=== PATIENT | male | born 1970 | race African-American/Black ===

== ENCOUNTER 2018-10-01 11:33 | Observation (INO) | payer BC ==
[2018-10-01] MEDS ORDERED: MORPHINE SULFATE 10 MG/ML INJ IV ONE (14:12)
--- NOTE | 2018-10-01 14:12 | ER Document Report ---
ED Skin Rash/Insect Bite/Abscs - General Chief Complaint: Cyst Stated Complaint: POSSIBLE ABSCESS Time Seen by Provider: 10/01/18 13:52 Mode of Arrival: Ambulatory Information source: Patient Notes: 48-year-old male presents to ED for complaint of large abscess to the left buttocks. He states he has had these multiple times in the past and the last several times he has had to go to surgery when he gets one. He states this 1 is been there for several days but is getting extremely painful now. He states he went to his primary care doctor and they gave him some antibiotics and he took 1 of those and a Motrin this morning and he has not had any solid food since yesterday and only enough fluids to take that pill this morning. He denies any fevers chills or any other symptoms except for the pain in the buttocks from this large abscess. He denies any past medical history except for the cellulitis abscesses. He states he does smoke 3/4 pack a day and drinks on the weekends. 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 Patient is alert and oriented respirations regular and unlabored speaking in full sentences. TRAVEL OUTSIDE OF THE [place] IN LAST 30 DAYS: No - HPI Patient complains to provider of: Tender/swollen area Onset: Last week Onset/Duration: Gradual, Worse Quality of pain: Pressure, Sharp, Throbbing Severity: Severe Pain Level: 5 Skin Character: Abscess Quality of rash: Painful Exacerbated by: Supine, Movement, Walking Relieved by: Denies Similar symptoms previously: Yes Recently seen / treated by doctor: Yes - Related Data Allergies/Adverse Reactions: oxycodone [Oxycodone] Allergy (Mild, Verified 10/01/18 11:45) Past Medical History - Social History Smoking Status: Current Every Day Smoker Chew tobacco use (# tins/day): No Frequency of alcohol use: Occasional Drug Abuse: None Family History: Reviewed & Not Pertinent Patient has suicidal ideation: No Patient has homicidal ideation: No Pulmonary Medical History: Denies: Hx Tuberculosis Renal/ Medical History: Denies: Hx Peritoneal Dialysis Past Surgical History: Denies: Hx Pacemaker - Immunizations Hx Diphtheria, Pertussis, Tetanus Vaccination: No Review of Systems - Review of Systems Notes: REVIEW OF SYSTEMS: CONSTITUTIONAL : Denies fever, chills, or sweats. Denies recent illness. EENT: Denies eye, ear, throat, or mouth pain or symptoms. Denies nasal or sinus congestion or discharge. Denies throat, tongue, or mouth swelling or difficulty swallowing. CARDIOVASCULAR: Denies chest pain. Denies palpitations or racing or irregular heart beat. Denies ankle edema. RESPIRATORY: Denies cough, cold, or chest congestion. Denies shortness of breath, difficulty breathing, or wheezing. GASTROINTESTINAL: Denies abdominal pain or distention. Denies nausea, vomiting , or diarrhea. Denies blood in vomitus, stools, or per rectum. Denies black, tarry stools. Denies constipation. GENITOURINARY: Denies difficulty urinating, painful urination, burning, frequency, blood in urine, or discharge. MUSCULOSKELETAL: Denies back or neck pain or stiffness. Denies joint pain or swelling. SKIN: Large abscess covering the majority of the inner left buttocks into the rectum. Patient states he has had these in the past and this needed surgical I& D's. He states he went to his primary care doctor and they started him on antibiotics and ibuprofen with no relief and no decrease in site in fact it is gotten larger. Patient will go to surgery. Dr. Rodrigez has been contacted and examined the patient. HEMATOLOGIC : Denies easy bruising or bleeding. LYMPHATIC: Denies swollen, enlarged glands. NEUROLOGICAL: Denies confusion or altered mental status. Denies passing out or loss of consciousness. Denies dizziness or lightheadedness. Denies headache. Denies weakness or paralysis or loss of use of either side. Denies problems with gait or speech. Denies sensory loss, numbness, or tingling. Denies seizures. PSYCHIATRIC: Denies anxiety or stress. Denies depression, suicidal ideation, or homicidal ideation. ALL OTHER SYSTEMS REVIEWED AND NEGATIVE. Dictation was performed using [employer] voice recognition software PHYSICAL EXAMINATION: GENERAL: Well-appearing, well-nourished and in no acute distress. HEAD: Atraumatic, normocephalic. EYES: Pupils equal round and reactive to light, extraocular movements intact, sclera anicteric, conjunctiva are normal. ENT: Nares patent, oropharynx clear without exudates. Moist mucous membranes. NECK: Normal range of motion, supple without lymphadenopathy LUNGS: Breath sounds clear to auscultation bilaterally and equal. No wheezes rales or rhonchi. HEART: Regular rate and rhythm without murmurs ABDOMEN: Soft, nontender, nondistended abdomen. No guarding, no rebound. No masses appreciated. Musculoskeletal: Normal range of motion, no pitting or edema. No cyanosis. NEUROLOGICAL: Cranial nerves grossly intact. Normal speech, normal gait. Normal sensory, motor exams PSYCH: Normal mood, normal affect. SKIN: Large abscess to left buttocks requiring surgical I&D. Extremely tender to palpation.. Physical Exam - Vital signs Vitals: Temp Pulse Resp BP Pulse Ox 97.6 F 105 H 18 146/89 H 95 10/01/18 11:51 10/01/18 11:51 10/01/18 11:51 10/01/18 11:51 10/01/18 11:51 Course - Vital Signs Vital signs: Temp Pulse Resp BP Pulse Ox 98.3 F 70 16 128/70 H 98 10/01/18 21:00 10/01/18 21:00 10/01/18 21:00 10/01/18 21:00 10/01/18 21:00 - Laboratory Result Diagrams: 10/01/18 14:30 10/01/18 14:30 Laboratory results interpreted by me: 10/01/18 14:30 WBC 10.9 H - Consults Dr Bland Time consulted: 14:00 Reason for consultation: 10/01/18 14:20 Very large left buttocks abscess required surgical I&D Consulted provider: will come to ER Discharge - Discharge Clinical Impression: Abscess of buttock, left Disposition: ADMITTED INPATIENT Admitting Provider: Surgicalist - [facility] Unit Admitted: Surgical Floor - keep in ed
[2018-10-01] MEDS ORDERED: RINGERS SOLUTION,LACTATED 1,000 ML IV ONE (14:13)
--- NOTE | 2018-10-01 14:22 | PDOC H&P ---
History of Present Illness Patient complains of: Buttock pain History of Present Illness: ELIEL PASTRANA is a 48 year old male Presents to the emergency department via ground rescue complaining of several day history of buttock pain left-sided, similar to previous episodes of perianal abscess Patient has a history of perianal abscesses drained at [facility] by his report although there is no record of that in the EMR. Patient evaluated in the emergency department by nurse practitioner, felt to have recurrent abscess too large to be drained in the emergency department. Surgery was consulted need he was advised admission, and surgical debridement in the operating room. Past Medical History Medical History: None Pulmonary Medical History: Denies: Tuberculosis Past Surgical History Past Surgical History: Incision and drainage of recurrent left buttock abscesses Past Surgical History: Denies: Pacemaker Social History Smoking Status: Current Every Day Smoker Hx Recreational Drug Use: Yes Hx Prescription Drug Abuse: No Family History Family History: Reviewed & Not Pertinent Parental Family History Reviewed: Yes Children Family History Reviewed: Yes Sibling(s) Family History Reviewed.: Yes Medication/Allergy Home Medications: Aspirin [Aspirin 81 mg Chewable Tablet] 81 mg PO DAILY 07/12/12 Metoprolol Tartrate [Lopressor 25 Mg Tablet] 25 mg PO BID 07/12/12 Nicotine [Nicoderm 21 Mg/24 Hr Transderm Patch] 1 each TD DAILY 07/12/12 Newell-3 Fatty Acids/Fish Oil [Fish Oil 1,000 Mg Capsule] 1 each PO BID 07/12/12 Hydrocodone/Acetaminophen [[place] 7.5-325 Tablet] 1 each PO Q6HP PRN #20 tablet 04/30/15 Allergies/Adverse Reactions: oxycodone [Oxycodone] Allergy (Mild, Verified 10/01/18 11:45) Review of Systems Constitutional: ABSENT: chills, fever(s), headache(s), weight gain, weight loss Eyes: ABSENT: visual disturbances Ears: ABSENT: hearing changes Cardiovascular: ABSENT: chest pain, dyspnea on exertion, edema, orthropnea, palpitations Respiratory: ABSENT: cough, hemoptysis Genitourinary: ABSENT: dysuria, hematuria Integumentary: PRESENT: as per HPI Physical Exam Vital Signs: Temp Pulse Resp BP Pulse Ox 97.6 F 105 H 18 146/89 H 95 10/01/18 11:51 10/01/18 11:51 10/01/18 11:51 10/01/18 11:51 10/01/18 11:51 Intake & Output 09/30/18 10/01/18 10/02/18 06:59 06:59 06:59 Weight 100.9 kg General appearance: PRESENT: mild distress Eye exam: PRESENT: EOMI Neck exam: PRESENT: full ROM Respiratory exam: PRESENT: rhonchi Cardiovascular exam: PRESENT: RRR Pulses: PRESENT: normal carotid pulses GI/Abdominal exam: PRESENT: soft - Nontender Rectal exam: PRESENT: deferred, other - Exquisitely tender left proximal buttock cheek; multiple scars inferior to this region; there are at least 2, possible 3 areas of point tenderness coming to ahead Psychiatric exam: PRESENT: anxious Assessment & Plan - Diagnosis (1) Abscess of buttock, left Is this a current diagnosis for this admission?: Yes Plan: Impression: Recurrent left buttock abscess, possible fistula in ano, too large to drain properly in the emergency department Recommendations: 1. Keep n.p.o., IV fluids, intravenous antibiotics; taken to the operating room under general versus spinal anesthesia for examination under anesthesia performed debridement, possible drain placement, possible seton placement (2) Smoker Is this a current diagnosis for this admission?: Yes - Time Time Spent: 30 to 50 Minutes Critical Time spent with patient: Less than 15 minutes Anticipated discharge: Home - Inpatient Certification Based on my medical assessment, after consideration of the patient's comorbidities, presenting symptoms, or acuity I expect that the services needed warrant INPATIENT care.: Yes I certify that my determination is in accordance with my understanding of Medicare's requirements for reasonable and necessary INPATIENT services [42 CFR 412.3e].: Yes Medical Necessity: Need for Pain Control, Need for IV Antibiotics, Need for Surgery
[2018-10-01 14:56] LABS: ABSOLUTE EOSINOPHILS # (AUTO) 0.1 10^3/uL (0.0-0.6); ABSOLUTE MONOCYTES (AUTO) 0.7 10^3/uL (0.1-1.4); ABSOLUTE NEUT (AUTO) 8.1 10^3/uL (1.7-8.2); BASOPHILS % (AUTO) 0.4 % (0-2); EOSINOPHILS % (AUTO) 0.6 % (0-6); HEMATOCRIT 42.7 % (37.9-51.0); HEMOGLOBIN 14.4 g/dL (13.5-17.0); LYMPHOCYTES % (AUTO) 18.5 % (13-45); MEAN CORPUSCULAR HEMOGLOBIN 30.1 pg (27.0-33.4); MEAN CORPUSCULAR HGB CONC 33.8 g/dL (32.0-36.0); MEAN CORPUSCULAR VOLUME 89 fl (80-97); MONOCYTES % (AUTO) 6.3 % (3-13); PLATELET COUNT 223 10^3/uL (150-450); RED BLOOD COUNT 4.79 10^6/uL (4.35-5.55); RED CELL DISTRIBUTION WIDTH 13.1 % (11.5-14.0); SEGMENTED NEUTROPHILS % (AUTO) 74.2 % (42-78); TOTAL CELLS COUNTED % (AUTO) 100 %; WHITE BLOOD COUNT 10.9 10^3/uL (4.0-10.5)
[2018-10-01 15:02] LABS: INTERNATIONAL RATION (INR) 0.94; PROTHROMBIN TIME 13.1 SEC (11.4-15.4)
[2018-10-01 15:03] LABS: PARTIAL THROMBOPLASTIN TIME 30.9 SEC (23.5-35.8)
[2018-10-01 15:15] LABS: ALANINE AMINOTRANSFERASE 25 U/L (21-72); ALKALINE PHOSPHATASE 97 U/L (38-126); ANION GAP 12 (5-19); ASPARTATE AMINO TRANSFERASE 26 U/L (17-59); BILIRUBIN,DIRECT 0.3 mg/dL (0.0-0.4); BILIRUBIN,TOTAL 0.6 mg/dL (0.2-1.3); BLOOD UREA NITROGEN 15 mg/dL (7-20); CALCIUM 8.9 mg/dL (8.4-10.2); CARBON DIOXIDE 26 mmol/L (22-30); CHLORIDE 106 mmol/L (98-107); GLUCOSE 87 mg/dL (75-110); POTASSIUM 4.4 mmol/L (3.6-5.0); SODIUM 143.6 mmol/L (137-145)
[2018-10-01] MEDS ORDERED: LIDOCAINE 1% INJ-PF (10 MG/ML) 30 ML SDV ONE (15:39)
[2018-10-01] MEDS ORDERED: PROPOFOL INJ 200 MG/20 ML VIAL IV ONE (15:46)
[2018-10-01] MEDS ORDERED: MIDAZOLAM 2 MG/2 ML INJ ONE (15:46)
[2018-10-01] MEDS ORDERED: FENTANYL CITRATE INJ/PF 100 MCG/2 ML AMPUL ONE (15:46)
[2018-10-01] MEDS ORDERED: BUPIVACAINE HCL/DEX-WATER/PF 15 MG/2 ML AMPULE ONE (15:47)
[2018-10-01] MEDS ORDERED: CEFAZOLIN INJ 1 GM VIAL ONE (16:10)
[2018-10-01] MEDS ORDERED: KETOROLAC TROMETHAMINE 10 MG TABLET PO PRN (16:31)
[2018-10-01] MEDS ORDERED: ONDANSETRON HCL INJ/PF 4 MG/2 ML SDV IV PRN (16:31)
--- NOTE | 2018-10-01 16:37 | Operative Report ---
Operative Report DATE OF SURGERY: 10/01/18 PREOPERATIVE DIAGNOSIS: Left buttock abscess, recurrent POSTOPERATIVE DIAGNOSIS: Same with broad left and posterior perianal abscess with fistula in ano OPERATION: 1. Exam under anesthesia. 2. Drainage of perianal abscesses. 3. Placement of left posterior lateral seton. 4. Placement of perianal abscess loop drains x2 SURGEON: VIELKA BERRIOS ANESTHESIA: Spinal TISSUE REMOVED OR ALTERED: See below COMPLICATIONS: None ESTIMATED BLOOD LOSS: 40 cc INTRAOPERATIVE FINDINGS: See below PROCEDURE: Patient was taken to the preop holding area to the main operating room where spinal anesthesia was induced. Patient was placed in the prone jackknife position buttocks spread taped widely prepped and draped in sterile fashion Surgical plan surgical timeout conducted. The findings are significant for swelling, chronic scar along the left perianal and posterior aspect of the left buttock cheek. There are multiple scars cephalad caudad as well as to the patient's right perianal side but these were all chronic. The skin was anesthetized overlying the point of maximum distention which was in the left posterior lateral quadrant and an incision was made with a #10 blade. We got into pus immediately. A hole was cut into the perianal skin approximately 2 cm in diameter. All devitalized tissue including skin and subcutaneous tissue was excisionally debrided. The infection extended posterior laterally almost to midline and anteriorly to the mid left lateral position. 2 counterincisions were made 1 along the patient's left of midline area, and one in the left lateral position inferior to the initial debridement site. Depth loops were placed in loop fashion. Examination of the anal canal revealed a opening in the near posterior midline position. This in fact confirmed the fistula and a note a probe was placed from the debrided the abscess cavity into the anal rectal canal and this was followed by a dev loop. The depth of the fistula was likely through some of the more distal or superficial fibers of the external anal sphincter. Because of all the chronic scarring as well as acute scarring, I did not feel it would be appropriate to lay this entire tract open. The dental loop was secured in a loop like fashion We irrigated the wound bed out again. I carefully inspected visually as well as manually the right perianal tissue and there was no suggestion of undrained abscess. We felt the operation was complete. Approximately 2 feet of half inch iodoform packing was packed into the left posterior lateral abscess cavity. 4 x 4's applied. Patient tolerated procedure well. He was rotated in the supine position and taken to recovery room in stable condition.
--- NOTE | 2018-10-01 17:02 | RADIOLOGY REPORT (SQ) ---
EXAM DESCRIPTION: CHEST 2 VIEWS COMPLETED DATE/TIME: 10/01/2018 3:45 pm REASON FOR STUDY: pre op COMPARISON: 2011 TECHNIQUE: Frontal and lateral radiographic views of the chest acquired. NUMBER OF VIEWS: Two view. LIMITATIONS: None. FINDINGS: LUNGS AND PLEURA: No opacities, masses or pneumothorax. No pleural effusion. MEDIASTINUM AND HILAR STRUCTURES: No masses or contour abnormalities. HEART AND VASCULAR STRUCTURES: Heart normal size. No evidence for failure. BONES: No acute findings. HARDWARE: None in the chest. OTHER: No other significant finding. IMPRESSION: NO SIGNIFICANT RADIOGRAPHIC FINDING IN THE CHEST. TECHNICAL DOCUMENTATION: JOB ID: [id number] [employer]- All Rights Reserved Reading location - IP/workstation name: [email or web address]
--- NOTE | 2018-10-01 17:53 | EKG REPORT ---
SEVERITY:- NORMAL ECG - SINUS RHYTHM : Confirmed by: Kevin Clarke MD 01-Oct-2018 17:52:52
[2018-10-01] MEDS ORDERED: DOCUSATE SODIUM 100 MG CAPSULE PO SCH (18:00)
[2018-10-01] MEDS: ACETAMINOPHEN INJ/PF 1000 MG/100 ML SDV IV SCH (18:52)
[2018-10-02] MEDS: ACETAMINOPHEN INJ/PF 1000 MG/100 ML SDV IV SCH ×2 (00:21→05:57)
[2018-10-02] MEDS: KETOROLAC TROMETHAMINE INJ/PF 30 MG/1 ML SDV IV PRN ×2 (01:31→08:20)
[2018-10-02 08:36] VITALS: BP 112/60
--- NOTE | 2018-10-02 13:16 | DISCHARGE SUMMARY E ---
Discharge Summary NAME: ELIEL PASTRANA : 1970 AGE: 48Y ADMITTED: 10/01/2018 DISCHARGED: 10/02/2018 PROCEDURE DONE: By Dr. Rodrigez on 10/01/2018, incision and drainage of abscess and seton placement for anorectal fistula. HOSPITAL COURSE: Patient admitted for pains on the left perirectal area. The patient had underwent incision and drainage of abscess coming from an anal fistula. The fistula was identified by Dr. Rodrigez and a red rubber catheter was placed through the fistula. It was then packed where the I and D was done. On 10/02/2018, the packing was removed and the setons were in place. No drainage noted. The patient will be instructed to have sitz baths in the hospital and then continue at home 3 times per day for the next 1-2 weeks. The patient is also scheduled to be followed up in the surgical clinic by Dr. Rodrigez in 2 weeks. The patient can take Motrin that he has at home p.r.n. for pain. DICTATING PHYSICIAN: DAREN MCLEOD M.D. [id number] PHY#: [id number] ID: [id number] JOB#: [id number] ACCT: [id number] cc:Donn FITCH PA >
== END 2018-10-02 10:28 | disposition home or self-care (01) ==
LOC: ER 11:33 → EH 14:45 → INTOOBSV 14:45 → 2N 17:15
PROVIDERS: ATTEND Surgery
PROC: 0D9Q0ZZ Drainage of Anus, Open Approach (ICD-10-PCS; principal; 2018-10-01 16:00)
DX: K61.0 Anal abscess (principal); L02.31 Cutaneous abscess of buttock; F17.210 Nicotine dependence, cigarettes, uncomplicated; Z79.899 Other long term (current) drug therapy; Z79.82 Long term (current) use of aspirin; Z98.890 Other specified postprocedural states
CPT/HCPCS: 46020; 46050; 93005; 99285; 96374; 36415; 87070; 87205; 85025; 85610; 85730; 87075; 87077; 80053; 71046; 93010; G0378 ×3; J2250; J0690; J3490 ×2; J3010; J1885; J2270; J7120; J0131 ×2; 300; J2704

== ENCOUNTER 2018-10-25 09:32 | Observation (INO) | payer BC ==
--- NOTE | 2018-10-25 10:13 | ER Document Report ---
ED Medical Screen (RME) - General Chief Complaint: Abscess Stated Complaint: POSSIBLE ABSCESS Time Seen by Provider: 10/25/18 10:05 Notes: 48 years old male with the surgery for perirectal abscess, postop complications have been directly admitted by the surgeon to the floor. Since there is no bed he was diverted to the ED. TRAVEL OUTSIDE OF THE [place] IN LAST 30 DAYS: No - Related Data Allergies/Adverse Reactions: oxycodone [Oxycodone] Allergy (Mild, Verified 10/25/18 09:34) Past Medical History - Social History Chew tobacco use (# tins/day): No Frequency of alcohol use: Occasional Drug Abuse: None - Past Medical History Cardiac Medical History: Reports: Hx Hypertension Pulmonary Medical History: Denies: Hx Tuberculosis Renal/ Medical History: Reports: Hx Kidney Stones. Denies: Hx Peritoneal Dialysis Past Surgical History: Denies: Hx Pacemaker - Immunizations Hx Diphtheria, Pertussis, Tetanus Vaccination: No Physical Exam - Vital signs Vitals: Temp Pulse Resp BP Pulse Ox 98.2 F 88 18 155/96 H 99 10/25/18 09:41 10/25/18 09:41 10/25/18 09:41 10/25/18 09:41 10/25/18 09:41 Course - Vital Signs Vital signs: Temp Pulse Resp BP Pulse Ox 98.2 F 88 18 155/96 H 99 10/25/18 09:41 10/25/18 09:41 10/25/18 09:41 10/25/18 09:41 10/25/18 09:41
[2018-10-25] MEDS ORDERED: DEXTROSE 5%-1/2 NORMAL SALINE 1,000 ML IV PRN (10:27)
[2018-10-25 11:58] LABS: ABSOLUTE EOSINOPHILS # (AUTO) 0.1 10^3/uL (0.0-0.6); ABSOLUTE MONOCYTES (AUTO) 0.5 10^3/uL (0.1-1.4); ABSOLUTE NEUT (AUTO) 3.5 10^3/uL (1.7-8.2); BASOPHILS % (AUTO) 0.4 % (0-2); EOSINOPHILS % (AUTO) 1.4 % (0-6); HEMATOCRIT 44.5 % (37.9-51.0); HEMOGLOBIN 15.1 g/dL (13.5-17.0); LYMPHOCYTES % (AUTO) 32.8 % (13-45); MEAN CORPUSCULAR HEMOGLOBIN 30.4 pg (27.0-33.4); MEAN CORPUSCULAR HGB CONC 33.9 g/dL (32.0-36.0); MEAN CORPUSCULAR VOLUME 90 fl (80-97); MONOCYTES % (AUTO) 8.1 % (3-13); PLATELET COUNT 220 10^3/uL (150-450); RED BLOOD COUNT 4.97 10^6/uL (4.35-5.55); RED CELL DISTRIBUTION WIDTH 13.4 % (11.5-14.0); SEGMENTED NEUTROPHILS % (AUTO) 57.3 % (42-78); TOTAL CELLS COUNTED % (AUTO) 100 %; WHITE BLOOD COUNT 6.2 10^3/uL (4.0-10.5)
[2018-10-25] MEDS: MORPHINE SULFATE 10 MG/ML INJ IV PRN (11:58)
[2018-10-25] MEDS: AMPICILLIN SODIUM/SULBACTAM NA 3 GM in NORMAL SALINE 100 ML IV SCH ×2 (11:58→19:24)
[2018-10-25] MEDS ORDERED: AMLODIPINE BESYLATE 10 MG TABLET PO SCH (12:00)
[2018-10-25 12:20] LABS: ANION GAP 9 (5-19); BLOOD UREA NITROGEN 18 mg/dL (7-20); CALCIUM 9.3 mg/dL (8.4-10.2); CARBON DIOXIDE 26 mmol/L (22-30); CHLORIDE 109 mmol/L (98-107); GLUCOSE 99 mg/dL (75-110); POTASSIUM 4.6 mmol/L (3.6-5.0); SODIUM 143.7 mmol/L (137-145)
[2018-10-25 12:24] LABS: APPEARANCE,URINE CLEAR; BILIRUBIN,URINE NEGATIVE (NEGATIVE); COLOR,URINE YELLOW; GLUCOSE, URINE NEGATIVE (NEGATIVE); KETONES,URINE NEGATIVE (NEGATIVE); LEUKOCYTE ESTERASE,URINE NEGATIVE (NEGATIVE); NITRITE,URINE NEGATIVE (NEGATIVE); PROTEIN,URINE 100 mg/dL (NEGATIVE); URINE SPECIFIC GRAVITY 1.017; UROBILINOGEN,URINE NEGATIVE mg/dL (<2.0)
[2018-10-25] MEDS ORDERED: DEXTROSE 5%-LACTATED RINGERS 1,000 ML IV PRN (12:26)
[2018-10-25] MEDS ORDERED: ONDANSETRON HCL INJ/PF 4 MG/2 ML SDV IV PRN (12:26)
--- NOTE | 2018-10-25 12:26 | PDOC H&P ---
History of Present Illness Admission Date/PCP: 10/25/18 11:50 VON STOREY PA-C Patient complains of: Perirectal pain and swelling History of Present Illness: ELIEL PASTRANA is a 48 year old male with a long history of recurrent perirectal abscesses. The patient reports a 2-3-day history of increasing pain, erythema, and swelling in the left anterior perirectal area. The pain is sharp and stabbing. It is constant and severe. The patient has experienced similar symptoms in the past, requiring incision and drainage of perirectal abscesses. Patient is a smoker, but denies diabetes or other significant health problems. Nothing makes his pain better. Palpation makes his pain worse. Pain does not radiate. He rates it as 10 out of 10. The patient denies fevers, chills, nausea, vomiting, melena, hematochezia, chest pain, shortness of breath, fatigue , malaise, blurry vision. Past Medical History Cardiac Medical History: Reports: Hypertension Pulmonary Medical History: Denies: Tuberculosis Past Surgical History Past Surgical History: Reports: Other - Multiple I&D's of perirectal abscesses and fistulas. Denies: Pacemaker Social History Smoking Status: Current Every Day Smoker Frequency of Alcohol Use: Heavy - Drinks every day Hx Recreational Drug Use: Yes Drugs: None Hx Prescription Drug Abuse: No Family History Family History: Reviewed & Not Pertinent Parental Family History Reviewed: Yes Children Family History Reviewed: Yes Sibling(s) Family History Reviewed.: Yes Medication/Allergy Home Medications: Amlodipine Besylate [Norvasc 10 mg Tablet] 10 mg PO DAILY 10/25/18 Allergies/Adverse Reactions: oxycodone [Oxycodone] Allergy (Mild, Verified 10/25/18 09:34) Review of Systems Constitutional: ABSENT: anorexia, chills, fatigue Eyes: ABSENT: visual disturbances Ears: ABSENT: hearing changes Nose, Mouth, and Throat: ABSENT: sore throat Cardiovascular: ABSENT: chest pain Respiratory: ABSENT: cough, dyspnea Gastrointestinal: PRESENT: other - Perirectal pain, swelling, and redness.. ABSENT: abdominal pain Genitourinary: ABSENT: dysuria Musculoskeletal: ABSENT: back pain Integumentary: PRESENT: other - See gastrointestinal symptoms.. ABSENT: pruritus Neurological: ABSENT: abnormal speech, confusion, convulsions, dizziness Psychiatric: ABSENT: anxiety, depression Endocrine: ABSENT: cold intolerance, heat intolerance Hematologic/Lymphatic: ABSENT: easy bleeding, easy bruising Physical Exam Vital Signs: Temp Pulse Resp BP Pulse Ox 98.2 F 88 18 155/96 H 99 10/25/18 09:41 10/25/18 09:41 10/25/18 09:41 10/25/18 09:41 10/25/18 09:41 General appearance: PRESENT: cooperative, mild distress - Perirectal pain Head exam: PRESENT: atraumatic, normocephalic Eye exam: PRESENT: EOMI, PERRLA. ABSENT: scleral icterus Mouth exam: PRESENT: neck supple Teeth exam: ABSENT: poor dentation Neck exam: ABSENT: meningismus, tenderness, thyromegaly, tracheal deviation Respiratory exam: PRESENT: unlabored. ABSENT: accessory muscle use, retraction , rhonchi, tachypnea, wheezes Pulses: PRESENT: normal radial pulses Vascular exam: PRESENT: normal capillary refill. ABSENT: pallor GI/Abdominal exam: PRESENT: soft. ABSENT: distended, guarding, tenderness Rectal exam: PRESENT: normal rectal tone, tenderness, other - Fluctuance, tenderness, and erythema at the 5 o'clock position (posterior and to the left). Extremities exam: ABSENT: clubbing, pedal edema Musculoskeletal exam: ABSENT: deformity, tenderness Neurological exam: PRESENT: alert, awake, oriented to person, oriented to place , oriented to time, oriented to situation, CN II-XII grossly intact. ABSENT: motor sensory deficit Psychiatric exam: ABSENT: agitated, anxious, depressed Focused psych exam: ABSENT: delusional Skin exam: ABSENT: cyanosis, erythema, jaundice Assessment & Plan - Diagnosis (1) Perirectal abscess Is this a current diagnosis for this admission?: Yes - Plan Summary Plan Summary: This is a 48-year-old male with recurrent, severe perianal disease. He has multiple fistula tracts. He currently has a seton in place (in a different location). The patient has a new area in about the 5 o'clock position that is swollen, tender, and fluctuant. I believe he has a recurrent perirectal abscess in this location. I have recommended definitive surgical exploration and drainage. The patient has agreed to this. Risks/benefits discussed, informed consent obtained, and all questions answered.
[2018-10-25] MEDS ORDERED: EPHEDRINE SULFATE INJ 50 MG/1 ML AMPULE ONE (12:41)
[2018-10-25] MEDS ORDERED: ONDANSETRON HCL INJ/PF 4 MG/2 ML SDV ONE (12:41)
[2018-10-25] MEDS ORDERED: KETAMINE HCL INJ 500 MG/10 ML VIAL ONE (12:41)
[2018-10-25] MEDS ORDERED: MIDAZOLAM 2 MG/2 ML INJ ONE ×2 (12:41→12:42)
[2018-10-25] MEDS ORDERED: HYDROMORPHONE HCL INJ/PF 2 MG/ML AMPULE ONE (12:42)
[2018-10-25] MEDS ORDERED: PROPOFOL INJ 200 MG/20 ML VIAL IV ONE (12:42)
[2018-10-25] MEDS ORDERED: LIDOCAINE 1%/EPINEPHRINE INJ 20 ML VIAL ONE (13:07)
[2018-10-25] MEDS ORDERED: BUPIVACAINE HCL/DEX-WATER/PF 15 MG/2 ML AMPULE ONE (13:12)
[2018-10-25] MEDS ORDERED: BUPIVACAINE HCL 0.25 % INJ/PF (2.5 MG/1 ML) 30 ML VIAL ONE (13:58)
[2018-10-25] MEDS ORDERED: MEPERIDINE HCL/PF INJ 25 MG/1 ML DISP.SYRIN IV PRN (14:13)
[2018-10-25] MEDS ORDERED: PROMETHAZINE HCL INJ 25 MG/1 ML VIAL IV PRN ×2 (14:13)
[2018-10-25] MEDS ORDERED: DIPHENHYDRAMINE HCL 50 MG/ML VIAL IV PRN (14:13)
[2018-10-25] MEDS ORDERED: FENTANYL CITRATE INJ/PF 100 MCG/2 ML AMPUL IV PRN ×3 (14:13)
--- NOTE | 2018-10-25 21:55 | Operative Report ---
Nonrecallable Operative Report DATE OF SURGERY: 10/25/18 PREOPERATIVE DIAGNOSIS: Perirectal abscess POSTOPERATIVE DIAGNOSIS: Perirectal abscess OPERATION: 1. Incision and drainage of a perirectal abscess. 2. Debridement of skin and fatty soft tissue of the perirectal area (sharp, excisional) due to necrosis and infection SURGEON: RUDDY DELEON 1ST TOBACCO CURER: ILIANA CARRILLO ANESTHESIA: Spinal - With LMAC TISSUE REMOVED OR ALTERED: Skin and fatty soft tissue COMPLICATIONS: None apparent ESTIMATED BLOOD LOSS: Minimal PROCEDURE: Drains/implants: 4 x 4 gauze. Procedure in detail: After informed consent was obtained, the patient was brought into the operating room and laid in the prone jackknife position. The area of the anus and rectum were prepped and draped in a normal sterile fashion. An anal block was created with half percent Marcaine. After this was completed, the fluctuant area was found to be at approximately the 7 o'clock position. The area of maximal fluctuance was incised, and a moderate amount of purulent material was encountered. Debridement of all infected tissue was then undertaken. An area of skin and fatty soft tissue, approximately 3 cm x 3 cm was removed using electrocautery. Once the infected, necrotic tissue was removed, the wound was irrigated and packed with 4 x 4 gauze. A dressing was then placed, and the procedure was concluded. All sponge, instrument, needle counts were correct x2. Condition: Stable. Iliana Carrillo PA-C was scrubbed and present the entirety of the procedure. She assisted with all portion of the procedure including opening of the skin, draining of the abscess, debridement of the nonviable/necrotic tissue, placement of the dressing.
[2018-10-26] MEDS: AMPICILLIN SODIUM/SULBACTAM NA 3 GM in NORMAL SALINE 100 ML IV SCH ×2 (00:57→06:16)
[2018-10-26] MEDS ORDERED: MORPHINE SULFATE 10 MG/ML INJ ONE (01:07)
[2018-10-26] MEDS: MORPHINE SULFATE 10 MG/ML INJ IV PRN (01:14)
[2018-10-26 05:32] LABS: ABSOLUTE EOSINOPHILS # (AUTO) 0.1 10^3/uL (0.0-0.6); ABSOLUTE LYMPHOCYTES (AUTO) 2.3 10^3/uL (0.5-4.7); ABSOLUTE MONOCYTES (AUTO) 0.4 10^3/uL (0.1-1.4); BASOPHILS % (AUTO) 0.7 % (0-2); EOSINOPHILS % (AUTO) 1.8 % (0-6); HEMATOCRIT 40.8 % (37.9-51.0); HEMOGLOBIN 13.7 g/dL (13.5-17.0); LYMPHOCYTES % (AUTO) 38.8 % (13-45); MEAN CORPUSCULAR HEMOGLOBIN 29.8 pg (27.0-33.4); MEAN CORPUSCULAR HGB CONC 33.5 g/dL (32.0-36.0); MEAN CORPUSCULAR VOLUME 89 fl (80-97); MONOCYTES % (AUTO) 7.2 % (3-13); PLATELET COUNT 193 10^3/uL (150-450); RED BLOOD COUNT 4.58 10^6/uL (4.35-5.55); RED CELL DISTRIBUTION WIDTH 13.3 % (11.5-14.0); SEGMENTED NEUTROPHILS % (AUTO) 51.5 % (42-78); TOTAL CELLS COUNTED % (AUTO) 100 %; WHITE BLOOD COUNT 5.9 10^3/uL (4.0-10.5)
--- NOTE | 2018-10-26 06:45 | PDOC DISCHARGE SUMMARY ---
General - Admit/Disc Date/PCP Admission Date/Primary Care Provider: 10/25/18 11:50 VON STOREY PA-C Discharge Date: 10/26/18 - Discharge Diagnosis (1) Perirectal abscess Is this a current diagnosis for this admission?: Yes - Additional Information Resuscitation Status: Full Code Discharge Diet: As Tolerated Discharge Activity: Activity As Tolerated Home Medications: Amlodipine Besylate [Norvasc 10 mg Tablet] 10 mg PO DAILY 10/25/18 History of Present Illness History of Present Illness: ELIEL PASTRANA is a 48 year old male with a long history of recurrent perirectal abscesses. The patient reports a 2-3-day history of increasing pain, erythema, and swelling in the left anterior perirectal area. The pain is sharp and stabbing. It is constant and severe. The patient has experienced similar symptoms in the past, requiring incision and drainage of perirectal abscesses. Patient is a smoker, but denies diabetes or other significant health problems. Nothing makes his pain better. Palpation makes his pain worse. Pain does not radiate. He rates it as 10 out of 10. The patient denies fevers, chills, nausea, vomiting, melena, hematochezia, chest pain, shortness of breath, fatigue , malaise, blurry vision. Hospital Course Hospital Course: Patient was taken to the operating room for definitive surgical care. The abscess was drained, and perirectal tissue was debrided. The patient was taken to the floor in stable condition. On the floor the patient began tolerating a diet, ambulating, and his pain was controlled with pain medications. By hospital day #2, the patient had reached maximal hospital benefit and was fit for discharge. Physical Exam Vital Signs: Temp Pulse Resp BP Pulse Ox 97.7 F 68 16 124/79 97 10/26/18 04:15 10/26/18 04:15 10/26/18 04:15 10/26/18 04:15 10/26/18 04:15 Intake & Output 10/24/18 10/25/18 10/26/18 06:59 06:59 06:59 Intake Total 2550 Output Total 53 Balance 2497 Weight 99 kg Results Laboratory Results: 10/26/18 04:23 10/26/18 04:23 WBC 5.9 RBC 4.58 Hgb 13.7 Hct 40.8 MCV 89 MCH 29.8 MCHC 33.5 RDW 13.3 Plt Count 193 Seg Neutrophils % 51.5 Lymphocytes % 38.8 Monocytes % 7.2 Eosinophils % 1.8 Basophils % 0.7 Absolute Neutrophils 3.0 Absolute Lymphocytes 2.3 Absolute Monocytes 0.4 Absolute Eosinophils 0.1 Absolute Basophils 0.0 Qualifiers - * PATIENT BEING DISCHARGED WITH ANY OF THE FOLLOWING DIAGNOSIS: No Plan Discharge Plan: Discharge home. Diet as tolerated. Activity as tolerated. Follow-up with [facility] in 7-10 days. Toradol 10 mg p.o. every 6 hours as needed for pain. Doxycycline 100 mg p.o. twice daily. Sits baths in warm soapy water twice daily and after bowel movements. Damp dressing change twice daily. Time Spent: Less than 30 Minutes
[2018-10-26 07:52] VITALS: BP 129/65
== END 2018-10-26 08:25 | disposition home or self-care (01) ==
LOC: ER 09:32 → EH 11:50 → INTOOBSV 11:50 → 2N 17:24
PROVIDERS: ATTEND Surgery
PROC: 0DBP0ZZ Excision of Rectum, Open Approach (ICD-10-PCS; 2018-10-25)
PROC: 0D9P0ZZ Drainage of Rectum, Open Approach (ICD-10-PCS; principal; 2018-10-25 13:00)
DX: K61.1 Rectal abscess (principal); F17.200 Nicotine dependence, unspecified, uncomplicated; I10 Essential (primary) hypertension; Z98.890 Other specified postprocedural states; Z79.899 Other long term (current) drug therapy
CPT/HCPCS: 36415 ×2; 85025 ×2; 80048; 81001; 46040; 11042; G0378 ×3; J2250; J3490 ×3; J0295 ×2; J2270 ×2; J2405; J2704; 902; J1170

== ENCOUNTER 2018-11-09 07:31 | Day surgery (SDC) | payer BC ==
[2018-11-09] MEDS ORDERED: FLUMAZENIL INJ 0.5 MG/5 ML VIAL ONE (07:42)
[2018-11-09] MEDS ORDERED: EPINEPHRINE INJ 1 MG/10 ML DISP.SYRIN ONE (07:42)
[2018-11-09] MEDS ORDERED: NALOXONE HCL INJ/PF 0.4 MG/1 ML SDV ONE (07:42)
[2018-11-09] MEDS ORDERED: DIPHENHYDRAMINE HCL 50 MG/ML VIAL ONE (07:42)
[2018-11-09] MEDS ORDERED: ONDANSETRON HCL INJ/PF 4 MG/2 ML SDV ONE (07:42)
[2018-11-09] MEDS ORDERED: GLUCAGON,HUMAN RECOMB 1 MG INJ ONE (07:43)
[2018-11-09] MEDS: MIDAZOLAM 2 MG/2 ML INJ ONE ×3 (08:32→08:45)
[2018-11-09] MEDS: FENTANYL CITRATE INJ/PF 100 MCG/2 ML AMPUL ONE ×3 (08:34→08:40)
--- NOTE | 2018-11-09 09:09 | Discharge Summary ---
Discharge Summary (SDC) - Discharge Final Diagnosis: Perianal abscesses status post debridement seton placement; normal: Date of Surgery: 11/09/18 Discharge Date: 11/09/18 Condition: Good Treatment or Instructions: [facility] [address] [address] POST ENDOSCOPY DISCHARGE INSTRUCTIONS 1. Diet: Start clear liquids that a regular diet as tolerated. 2. Resume all preoperative medications. All oral anticoagulants and aspirins can be resumed 24 hours after procedure. 3. If a polypectomy was performed some bleeding per rectum may occur. This should stop within 3 days. If not, please contact the office. 4. If you had a colonoscopy you may experience some bloating and delayed return of normal bowel function for several days, your regular bowel movement pattern should resume within a week. 5. Please contact [facility] at to make an appointment with Dr. Rodrigez for 1 to 3 weeks following procedure. 6. If you have any questions or concerns regarding your care,treatment plan or follow up, please contact our office. 7. Per clinical guidelines we recommend you undergo a repeat colonoscopy in 5 years. Discharge Diet: Regular Discharge Activity: Activity As Tolerated Home Care Assistance: None Needed Report the Following to Your Physician Immediately: Shortness of Breath, Increase in Pain, Fever over 101 Degrees
--- NOTE | 2018-11-09 09:16 | Operative Report ---
Operative Report DATE OF SURGERY: 11/09/18 PREOPERATIVE DIAGNOSIS: 1. History of perianal abscess status post drainage and seton placement. 2. Rule out Crohn's colitis POSTOPERATIVE DIAGNOSIS: Same OPERATION: 1. Total colonoscopy to cecum. 2. Left posterior lateral seton tightening SURGEON: VIELKA BERRIOS ANESTHESIA: Moderate Sedation TISSUE REMOVED OR ALTERED: See below COMPLICATIONS: None ESTIMATED BLOOD LOSS: None INTRAOPERATIVE FINDINGS: See below PROCEDURE: Obtaining informed consent the patient was taken from the preoperative holding area to the main endoscopy suite where monitoring devices were attached to the patient. Plan and surgical timeout were conducted The patient was placed in the left lateral decubitus position with knees to chest. A perianal examination was performed. Perianal examination left anterolateral open wound approximately 2-1/2-3 cm, granulating, no smell or active drainage In the left posterior lateral position is a seton which is loose but secured closed with silk suture. The perianal tissue is without erythema or edema or tenderness. Sphincter tone was felt to be normal. The prostate gland was smooth. The flexible adult colonoscope was advanced through the anal rectal canal, all the way to the cecum. Utilization of the cecum was achieved and the ileocecal valve, the appendiceal orifice and transillumination of the anterior abdominal wall. This was an excellent study on the well-prepped bowel. The colonoscope was withdrawn slowly and methodically checked and the mucosa carefully. There was no evidence of tumor, stricture, bleeding or polyp. There was no evidence of diverticuloses. The scope was slowly withdrawn through the anal rectal canal. Complete visualization of the rectum was achieved with photodocumentation. The scope was withdrawn to the patient's anus. We now tighten the seton by approximately 3-1/2-4 cm with a 0 silk suture. This is well tolerated by the patient. The patient tolerated the procedure well and was taken to the recovery area in stable condition. Per surveillance guidelines, patient may be appropriate candidate for a surveillance colonoscopy in 5 years. There is no clinical evidence of Crohn's colitis; I did discuss with his the importance of having his hemoglobin A1c checked.
[2018-11-09] MEDS ORDERED: LIDOCAINE 2% JELLY 5 ML TUBE ONE (09:36)
[2018-11-09 10:39] VITALS: BP 119/81
== END 2018-11-09 10:15 | disposition home or self-care (01) ==
LOC: END 07:31
PROVIDERS: ATTEND Surgery
DX: Z12.11 Encounter for screening for malignant neoplasm of colon (principal); K61.0 Anal abscess; I10 Essential (primary) hypertension; F17.210 Nicotine dependence, cigarettes, uncomplicated; Z79.899 Other long term (current) drug therapy; Z01.818 Encounter for other preprocedural examination; Z09 Encounter for follow-up examination after completed treatment for conditions other than malignant neoplasm; Z87.19 Personal history of other diseases of the digestive system
CPT/HCPCS: 45378; 46030; J2250; J3010; J0171; J1200; J1610; J2310; J2405; J3490